=== PATIENT | male | born 1945 | race Caucasian/White ===

== ENCOUNTER 2017-08-23 10:49 | Outpatient (CLI) | payer MEDICARE | END 2017-08-23 10:50 | disposition home or self-care (01) | LOC: BICRAD 10:49 | PROVIDERS: ATTEND Internal Medicine Gastroenterology | DX: R10.11 Right upper quadrant pain (principal) ==

== ENCOUNTER 2017-12-10 07:32 | Outpatient (CLI) | payer MEDICARE ==
--- NOTE | 2017-12-10 09:14 | ULT ---
GALLBLADDER ULTRASOUND: History: Right upper quadrant pain. FINDINGS: Real-time imaging of the right upper quadrant shows a mobile small echogenic density which appears to float within the gallbladder. It may represent sludge. It would be unusual for a stone to have this appearance. I discussed this with the technologist who definitely felt that this was moving and not a ttached to the wall. The liver is of increased echogenicity and somewhat coarse in echotexture. It measures 15.5 cm in [facility]. Right kidney is normal in size and not obstructed. There are two right renal cysts, the larger measur es 3.9 cm. Common duct is 7 mm. Technologist reports a negative ultrasound Bravo's sign. IMPRESSION: 1. Fatty change of liver. 2. Mobile echogenic focus within the gallbladder which appears to float within the gallbladder lumen, possibly some type of sludge. It would be an usual appearance for stone given the lack of shadowing. 3. Two right renal cysts. POS: [facility]
== END 2017-12-10 07:33 | disposition home or self-care (01) ==
LOC: BICULT 07:32
PROVIDERS: ATTEND Internal Medicine
DX: R10.13 Epigastric pain (principal); K44.9 Diaphragmatic hernia without obstruction or gangrene; K21.9 Gastro-esophageal reflux disease without esophagitis; R19.4 Change in bowel habit; K57.30 Diverticulosis of large intestine without perforation or abscess without bleeding; K76.0 Fatty (change of) liver, not elsewhere classified; N28.1 Cyst of kidney, acquired
CPT/HCPCS: 76705

== ENCOUNTER 2018-03-12 09:37 | Outpatient (CLI) | payer MEDICARE ==
--- NOTE | 2018-03-12 12:18 | MRI ---
MRI PELVIS WITH AND WITHOUT CONTRAST: INDICATIONS: A 72-year-old male with elevated PSA. COMPARISON: None. TECHNIQUE: Multiplanar, multisequence MR images were obtained of the pelvis utilizing prostate cancer specific p rotocol with and without contrast. The patient received 20 mL of MultiHance for the exam. The exam was reviewed on a separate 3D [employer] work station for multiparametric evaluation. FINDINGS: Prominent susceptibility artifact from a large pocket of gas within the rectum limits the diffusion-w eighted and ADC images, particularly of the posterior aspect of the prostate gland. There is promine nt distortion of the signal within this location. No definite signal abnormality is grossly evident. There is some hazy, predominantly low T2, feathery-like signal defect seen within the peripheral zo ne of the prostate gland. There are numerous heterogeneous nodules seen within the central zone of t he prostate gland. There is some mild enhancement involving the left medial and lateral apex and mid gland of the prostate, without associated T2 signal abnormality or gross ADC correlate. No enlarged lymph nodes are evident. There is no overt change to suggest the presence of neurovascular spread o f disease. Incidental note is made of a large paralabral cyst seen along the posterior and superior aspect of the left hip, measuring 2.3 cm, likely indicative of an underlying labral tear. There are scattered diverticula involving the colon. There is a 3.1 cm hemangioma within the S1 segment. IMPRESSION: 1. PI-RADS category 2-Low (clinically significant cancer is unlikely to be present). 2. Left hip posterior-superior paralabral cyst, likely indicative of an underlying posterior-superio r labral tear. 3. Colonic diverticulosis. 4. Bony hemangioma within the central aspect of the S1 vertebral level. POS: [facility]
[2018-03-12] MEDS ORDERED: Gadobenate Dimeglumine 529 MG/1 ML (20ML VIAL) ONE (13:38)
== END 2018-03-12 09:38 | disposition home or self-care (01) ==
LOC: TBSIIMAG 09:37
PROVIDERS: ATTEND Urology
DX: R97.20 Elevated prostate specific antigen [PSA] (principal); M24.852 Other specific joint derangements of left hip, not elsewhere classified; K57.30 Diverticulosis of large intestine without perforation or abscess without bleeding; D18.09 Hemangioma of other sites
CPT/HCPCS: 72197; A9577

== ENCOUNTER 2018-04-28 10:17 | Outpatient (CLI) | payer MEDICARE ==
[2018-04-28 11:58] LABS: Mean Corpuscular HGB CONC 32.9 g/dL (32.0-36.0); Mean Corpuscular Hemoglobin 29.3 pg (27.0-31.0); Mean Corpuscular Volume 89.3 fL (78.0-98.0); Mean Platelet Volume 6.5 fL (7.4-10.4); Platelet Count 218 thou/uL (130-400); RBC Distribution Width 12.5 % (11.5-14.5); Red Blood Cell (RBC) Count 5.12 mill/uL (4.70-6.10); White Blood Cell (WBC) Count 6.9 thou/uL (4.8-10.8)
[2018-04-28 12:00] LABS: Bacteria/HPF None Seen HPF (None Seen); Hyaline Casts/LPF NONE SEEN LPF (0-3 Hyaline); RBC/HPF None Seen HPF (0-3); Squamous Epithelial 0-3 HPF (0-3); WBC/HPF None Seen HPF (0-3)
[2018-04-28 12:02] LABS: PTT 37.1 SEC (22.9-36.1); Prothrombin Time 13.3 SEC (12.0-14.7)
[2018-04-28 12:38] LABS: Anion Gap 11 mmol/L (10-20); BUN (Urea Nitrogen) 13 mg/dL (8.4-25.7); Calc. Creatinine Clearance 0 mL/min (70-130); Calcium 9.3 mg/dL (7.8-10.44); Carbon Dioxide 27 mmol/L (23-31); Chloride 105 mmol/L (98-107); Estimated GFR-MDRD Greater than 90; Glucose 118 mg/dL (83-110); Sodium 139 mmol/L (136-145)
--- NOTE | 2018-04-29 09:33 | EKG ---
Test Reason : Blood Pressure : / mmHG Vent. Rate : 058 BPM Atrial Rate : 058 BPM P-R Int : 184 ms QRS Dur : 116 ms QT Int : 428 ms P-R-T Axes : 057 -33 004 degrees QTc Int : 420 ms Sinus bradycardia Left axis deviation Left ventricular hypertrophy with QRS widening Nonspecific T wave abnormality Abnormal ECG No previous ECGs available Confirmed by DR. Rosa Maria GARF ([id number]) on 04/29/2018 9:33:21 AM Referred By: LINDA Confirmed By:DR. Rosa Maria GRAF
== END 2018-04-28 10:18 | disposition home or self-care (01) ==
LOC: LABBT 10:17
PROVIDERS: ATTEND Urology
DX: Z01.818 Encounter for other preprocedural examination (principal); R97.20 Elevated prostate specific antigen [PSA]
CPT/HCPCS: 80048; 81015; 85027; 85610; 85730; 87086; 93005; 93010

== ENCOUNTER 2018-06-05 10:22 | Outpatient (CLI) | payer MEDICARE ==
--- NOTE | 2018-06-05 11:13 | RAD ---
Exam: 5 views lumbar spine HISTORY: Cervicalgia Left neck stiffness. Muscle spasm FINDINGS: AP, swimmer's, lateral, base of skull and open-mouth view of the cervical spine are perform ed FINDINGS: Predental space is normal. Limited evaluation of the odontoid process. Lateral masses of C1 and C2 articulate appropriately. On the AP projection, no malalignment. Cervical spine vertebral body height is maintained. No fracture. Limited evaluation of the cervicotho racic junction. Moderate degenerative change at C5-C6 and C6-C7. There is loss of disc space height and minimal osteo phyte formation. IMPRESSION: Moderate degenerative changes involving the cervical spine at C5-C6 and C6-C7.
== END 2018-06-05 10:23 | disposition home or self-care (01) ==
LOC: BICRAD 10:22
PROVIDERS: ATTEND Family Medicine
DX: M54.2 Cervicalgia (principal); M47.812 Spondylosis without myelopathy or radiculopathy, cervical region
CPT/HCPCS: 72040

== ENCOUNTER 2018-07-15 08:55 | Outpatient (CLI) | payer MEDICARE ==
--- NOTE | 2018-07-15 11:43 | ULT ---
ULTRASOUND ABDOMEN LIMITED: (RIGHT UPPER QUADRANT) DATE: 07/15/18 HISTORY: Abnormal imaging of abdomen, abnormal prior gallbladder ultrasound. COMPARISON: 12/10/17. FINDINGS: Gallbladder: Normal wall thickness. No pericholecystic fluid. A few tiny, mobile, nonshadowing echoge marla foci within the lumen, either tiny sludge particles or tiny gallstones. Common duct: 6 mm. Liver: Diffusely increased echogenicity consistent with fatty liver. Pancreas: Nonspecific sonographic appearance. Right kidney: No hydronephrosis. 4 cm parapelvic cyst at mid pole. 2.5 cm cyst at lower pole ysabel gamez. No major interval change detected. IMPRESSION: 1. A few tiny, mobile, echogenic foci within the gallbladder: sludge particles versus tiny gallstone s. 2. No sonographic evidence of acute cholecystitis. 3. Hepatic steatosis. 4. Two right renal cysts. 5. No major interval change. PITER Geiger POS: [facility]
== END 2018-07-15 08:56 | disposition home or self-care (01) ==
LOC: BICULT 08:55
PROVIDERS: ATTEND Internal Medicine Gastroenterology
DX: R93.5 Abnormal findings on diagnostic imaging of other abdominal regions, including retroperitoneum (principal); K76.0 Fatty (change of) liver, not elsewhere classified; N28.1 Cyst of kidney, acquired; R93.2 Abnormal findings on diagnostic imaging of liver and biliary tract
CPT/HCPCS: 76705

== ENCOUNTER 2018-07-21 05:16 | Outpatient (CLI) | payer MEDICARE ==
[2018-07-21 11:50] LABS: #Basophils 0.1 thou/uL (0.0-0.2); #Eosinphils 0.1 thou/uL (0.0-0.7); #Lymphocytes 1.2 thou/uL (1.20-3.40); #Monocytes 0.5 thou/uL (0.11-0.59); #Neutrophils 5.1 thou/uL (1.40-6.50); %Basophils 0.9 % (0.0-1.0); %Eosinophils 1.6 % (0.0-10.0); %Lymphocytes 16.8 % (21.0-51.0); %Monocytes 6.7 % (0.0-10.0); Hemoglobin 15.5 g/dL (14.0-18.0); Mean Corpuscular HGB CONC 33.7 g/dL (32.0-36.0); Mean Corpuscular Hemoglobin 30.1 pg (27.0-31.0); Mean Corpuscular Volume 89.2 fL (78.0-98.0); Mean Platelet Volume 6.5 fL (7.4-10.4); Platelet Count 194 thou/uL (130-400); RBC Distribution Width 12.2 % (11.5-14.5); Red Blood Cell (RBC) Count 5.17 mill/uL (4.70-6.10); White Blood Cell (WBC) Count 6.8 thou/uL (4.8-10.8)
[2018-07-21 12:18] LABS: Anion Gap 13 mmol/L (10-20); BUN (Urea Nitrogen) 15 mg/dL (8.4-25.7); Calc. Creatinine Clearance 0 mL/min (70-130); Calcium 9.5 mg/dL (7.8-10.44); Carbon Dioxide 26 mmol/L (23-31); Chloride 104 mmol/L (98-107); Estimated GFR-MDRD 87; Glucose 145 mg/dL (83-110); Potassium 4.3 mmol/L (3.5-5.1); Sodium 139 mmol/L (136-145)
== END 2018-07-21 05:17 | disposition home or self-care (01) ==
LOC: LABBT 05:16
PROVIDERS: ATTEND Surgery
DX: Z01.818 Encounter for other preprocedural examination (principal); K43.9 Ventral hernia without obstruction or gangrene
CPT/HCPCS: 80048; 85025; 93005; 93010

== ENCOUNTER 2018-07-23 09:57 | Day surgery (SDC) | payer MEDICARE ==
[2018-07-21 11:31] VITALS: BMI 31.3
[2018-07-23] MEDS ORDERED: Bupivacaine/Epinephrine 0.25% 30 ML VIAL ONE (11:43)
[2018-07-23] MEDS ORDERED: Fentanyl 100 MCG/2 ML VIAL ONE ×2 (11:51)
[2018-07-23] MEDS ORDERED: HYDROcodone/Acetaminophen 5/325 mg Tablet ONE (15:13)
--- NOTE | 2018-07-23 16:28 | OP ---
DATE OF PROCEDURE: 07/23/2018 PREOPERATIVE DIAGNOSIS: Ventral hernia. POSTOPERATIVE DIAGNOSIS: Ventral hernia. PROCEDURE PERFORMED: Da Nicky laparoscopic ventral hernia repair with mesh, [address] ANESTHESIA: General. ESTIMATED BLOOD LOSS: None. COMPLICATIONS: None. SPECIMEN: None. FINDINGS: Ventral hernia. DESCRIPTION OF PROCEDURE: The patient was taken to the operating room and laid supine on the operating room table. After general anesthetic was obtained, Owens was placed and the abdomen was shaved, prepped, and draped in a sterile fashion. Left subcostal 5 mm Optiview trocar was placed without injury and high-flow pneumoperitoneum was obtained. Left and right abdominal 8 mm subcostal robot assist ports were placed under direct visualization. The 5 mm subcostal port switched out to an 11 balloon trocar. All ports were docked to the robot. Surgeon goes to the console. The peritoneum was taken down exposing the ventral hernia. The omental fat was reduced from the ventral hernia. The peritoneum was taken down circumferentially, so the posterior fascia was exposed. 0 V-Loc sutures used to close the hernia defect primarily. An [address] mesh was cut in a [place], marked on its mesh side, and rolled and placed in the abdominal cavity. It was held up against the closed fascia using the V-Loc needle. A 2-0 V-Loc was then used to sew the mesh circumferentially around to the posterior fascia. All needles were removed from the abdomen. All port sites were infiltrated using local anesthetic and removed under direct visualization and pneumoperitoneum was let down. A 4-0 Monocryl and Dermabond used to close all skin incisions. The patient was sent to Recovery in stable condition. All instrument counts, needle counts, and lap counts were correct. Job ID: [id number]
== END 2018-07-23 15:30 | disposition home or self-care (01) ==
LOC: SDC 09:57
PROVIDERS: ATTEND Surgery
PROC: 0WUF4JZ Supplement Abdominal Wall with Synthetic Substitute, Percutaneous Endoscopic Approach (ICD-10-PCS; principal; 2018-07-23)
DX: K43.9 Ventral hernia without obstruction or gangrene (principal); K21.9 Gastro-esophageal reflux disease without esophagitis; Z79.51 Long term (current) use of inhaled steroids; Z79.82 Long term (current) use of aspirin; Z79.899 Other long term (current) drug therapy
CPT/HCPCS: C1781; J0690; J3010

== ENCOUNTER 2018-11-15 19:56 | Emergency (ER) | payer MEDICARE ==
[~2018-11-15 19:56] MED LIST: ISOVUE-370 76%-LOCM 1 ML ONE
[2018-11-15] MEDS ORDERED: Acetaminophen 325 MG TAB ONE (22:16)
[2018-11-15] MEDS ORDERED: Adacel (T-DAP) 0.5 ML SYRINGE ONE (22:16)
[2018-11-15] MEDS ORDERED: Lidocaine 1% (PF) 30 ML VIAL ONE (22:16)
[2018-11-15 22:39] LABS: #Eosinphils 0.2 thou/uL (0.0-0.7); #Lymphocytes 1.5 thou/uL (1.20-3.40); #Monocytes 0.8 thou/uL (0.11-0.59); #Neutrophils 6.6 thou/uL (1.40-6.50); %Basophils 0.5 % (0.0-1.0); %Eosinophils 1.7 % (0.0-10.0); %Lymphocytes 16.7 % (21.0-51.0); %Monocytes 8.9 % (0.0-10.0); %Neutrophils 72.1 % (42.0-75.0); Hemoglobin 15.3 g/dL (14.0-18.0); Mean Corpuscular HGB CONC 34.4 g/dL (32.0-36.0); Mean Corpuscular Hemoglobin 29.7 pg (27.0-31.0); Mean Corpuscular Volume 86.3 fL (78.0-98.0); Mean Platelet Volume 6.3 fL (7.4-10.4); Platelet Count 193 thou/uL (130-400); RBC Distribution Width 12.1 % (11.5-14.5); Red Blood Cell (RBC) Count 5.16 mill/uL (4.70-6.10); White Blood Cell (WBC) Count 9.1 thou/uL (4.8-10.8)
--- NOTE | 2018-11-15 22:54 | RAD ---
LEFT ELBOW: 11/15/18 Four views. HISTORY: Injury. Laceration. No fracture. No joint effusion. IMPRESSION: No osseous abnormality. POS: [facility]
--- NOTE | 2018-11-15 22:55 | RAD ---
LEFT KNEE: 11/15/18 Four views. HISTORY: Injury. Mild degenerative change. No fracture. No joint effusion. IMPRESSION: No acute abnormality. POS: [facility]
--- NOTE | 2018-11-15 22:56 | RAD ---
PORTABLE CHEST: 11/15/18 HISTORY: Injury. Lungs appear clear. Heart and mediastinum unremarkable. Osseous structures unremarkable. IMPRESSION: No acute findings. POS: [facility]
[2018-11-15 23:05] LABS: ALT (SGPT) 13 U/L (8-55); AST (SGOT) 14 U/L (5-34); Alkaline Phosphatase 58 U/L (40-110); Anion Gap 13 mmol/L (10-20); BUN (Urea Nitrogen) 21 mg/dL (8.4-25.7); Bilirubin, Total 0.5 mg/dL (0.2-1.2); Calc. Creatinine Clearance 0 mL/min (70-130); Carbon Dioxide 26 mmol/L (23-31); Chloride 103 mmol/L (98-107); Estimated GFR-MDRD 82; Globulin 3.1 g/dL (2.4-3.5); Glucose 88 mg/dL (83-110); Lipase 29 U/L (8-78); Potassium 3.9 mmol/L (3.5-5.1); Protein, Total 7.1 g/dL (5.8-8.1); Sodium 138 mmol/L (136-145)
--- NOTE | 2018-11-15 23:38 | CT ---
CT ABDOMEN AND PELVIS WITH CONTRAST: 11/15/18 INDICATION: Trauma, fall with injury to the left side. Left upper quadrant pain. FINDINGS: Lung bases are clear. The liver, spleen and pancreas unremarkable. There is a large cyst from the superior left kidney kevin uring 6.5 cm. There are numerous other bilateral cystic lesions. No hydronephrosis. No evidence of re nal contusion or injury. Urinary bladder unremarkable. Mild prostatic hypertrophy. Small bowel loops normal caliber. Appendix normal. Stool throughout the colon. No free fluid in the abdomen or pelvis. Aorta normal caliber. The bony pelvis is intact. IMPRESSION: No acute intra-abdominal injury. CT LOWER THORACIC AND LUMBAR SPINE: Lower thoracic and lumbar vertebrae maintain normal height and alignment. No compression deformity. N o evidence of acute fracture. IMPRESSION: No evidence of lower thoracic or lumbar spinal fractures. POS: OFF
== END 2018-11-16 02:05 | disposition home or self-care (01) ==
LOC: ERS 19:56
DX: S51.012A Laceration without foreign body of left elbow, initial encounter (principal); N28.1 Cyst of kidney, acquired; Z79.82 Long term (current) use of aspirin; Z79.899 Other long term (current) drug therapy; W18.30XA Fall on same level, unspecified, initial encounter
CPT/HCPCS: 12004; 71045; 74177; 80053; 83690; 85025; 86850; 86900; 86901; 90471; 90715; J2001; Q9966